=== PATIENT | male | born 1975 | race African-American/Black ===

== ENCOUNTER 2018-04-24 13:45 | Emergency (ER) | payer MEDICAID ==
[~2018-04-24] VITALS: Ht 188 cm; Wt 95.3 kg
--- NOTE | 2018-04-24 13:49 | NUR ---
patient ambulated to bed #1
--- NOTE | 2018-04-24 13:50 | NUR ---
42Y/F BIB C/O SORE THROAT AND FEVER WITH N/V X 1 DAY. NO OTHER COMPLAINTS AT THIS TIME. DENIES CP AND SOB. BED DOWN, BEDRAIL UP X 1; ER MD AWARE AND NOTIFIED OF PT STATUS; WILL CONT TO MONITOR PT. HX: HTN MEDS:METOPROLOL
[2018-04-24 13:53] VITALS: BP 115/78
--- NOTE | 2018-04-24 14:00 | NUR ---
Patient being evaluated by physician at bedside.
--- NOTE | 2018-04-24 15:23 | NUR ---
Patient discharged with v/s stable. Written and verbal after care instructions given and explained. Patient alert, oriented and verbalized understanding of instructions. Ambulatory with steady gait. All questions addressed prior to discharge. ID band removed. Patient advised to follow up with PMD. Rx of zithromax z-quinton given. Patient educated on indication of medication including possible reaction and side effects. Opportunity to ask questions provided and answered.
[2018-04-24 15:24] VITALS: BP 113/76
== END 2018-04-24 15:23 | disposition home or self-care (01) ==
LOC: MED 13:45
DX: J40 Bronchitis, not specified as acute or chronic (principal); J02.9 Acute pharyngitis, unspecified; I10 Essential (primary) hypertension
CPT/HCPCS: 99283

== ENCOUNTER 2018-08-06 14:29 | Emergency (ER) | payer MEDICAID ==
[~2018-08-06] VITALS: Ht 188 cm; Wt 96.2 kg
[2018-08-06 14:35] VITALS: BP 127/81
--- NOTE | 2018-08-06 14:40 | NUR ---
43 Y/O M BIB SELF W/ C/O ABSCESS TO RIGHT NIPPLE X WEEKS. +REDNESS, +SWELLING. PT DENIES FEVER/CHILLS. PT DENIES N/V/D; AAOX4, PERRL, WITH EVEN AND STEADY GAIT; PT DENIES ANY FEVER, CP, SOB, OR COUGH AT THIS TIME; PT STATES 8/10 PAIN AT THIS TIME; VSS; PATIENT POSITIONED FOR COMFORT; HOB ELEVATED; BEDRAILS UP X2; BED DOWN. hx--HTN, COPD, Asthma
--- NOTE | 2018-08-06 15:50 | NUR ---
PT. RESTING COMFORTABLY IN BED, RR EVEN AND UNLABORED. VSS. WILL CONTINUE TO MONITOR.
[2018-08-06] MEDS ORDERED: KETOROLAC 60 MG/2 ML VIAL IM ONE (16:45)
--- NOTE | 2018-08-06 16:50 | NUR ---
pt. resting comfortably in bed, rr even and unlabored. Will continue to monitor. vss
[2018-08-06 17:19] VITALS: BP 120/82
--- NOTE | 2018-08-06 17:19 | NUR ---
Patient discharged with v/s stable. Written and verbal after care instructions given and explained. Patient alert, oriented and verbalized understanding of instructions. Ambulatory with steady gait. All questions addressed prior to discharge. ID band removed. Patient advised to follow up with PMD. Rx of bactrim ds, keflex 500mg, motrin 800mg. given. Patient educated on indication of medication including possible reaction and side effects. Opportunity to ask questions provided and answered.
== END 2018-08-06 17:19 | disposition home or self-care (01) ==
LOC: MED 14:29
DX: L03.313 Cellulitis of chest wall (principal); J86.9 Pyothorax without fistula; J45.909 Unspecified asthma, uncomplicated; I10 Essential (primary) hypertension; F17.200 Nicotine dependence, unspecified, uncomplicated
CPT/HCPCS: 96372; 99283; J1885

== ENCOUNTER 2018-08-09 14:27 | Emergency (ER) | payer MEDICAID ==
[~2018-08-09] VITALS: Ht 185.4 cm; Wt 95.3 kg
[2018-08-09 14:36] VITALS: BP 131/78
--- NOTE | 2018-08-09 14:59 | NUR ---
PATIENT AMBULATED TO ER BED 8.
--- NOTE | 2018-08-09 15:05 | NUR ---
PT IS A 43 Y/O MALE WHO PRESENST TO THE ED C/O CELLULITIS. PT STATES THAT HE WAS PRESCRIBED ANTIBIOTICS WITH NO RELIEF, REPORTS WEAKNESS. PT DENIES PAIN AT THIS TIME, REPORTS TAKING MOTRIN. PT DENIES CP, SOB, N/V/D. NOTED REDNESS AROUND R NIPPLE. PT AWAKE AND ALERT, RR EVEN/UNLABORED. PT REPOSITIONED FOR COMFORT, BED IN LOWEST POSITION. ER PROVIDER NOTIFIED. WILL CONTINUE TO MONITOR. RX: DOES NOT REMEMBER HX: DENIES
[2018-08-09] MEDS ORDERED: KETOROLAC 30 MG/ML VIAL IVP ONE (15:50)
[2018-08-09] MEDS ORDERED: CLINDAMYCIN 600 MG in DEXTROSE 5% 50 ML IV ONE (15:50)
[2018-08-09 16:41] LABS: BASOPHILS # (AUTO) 0.1 K/uL (0.00-0.22); BASOPHILS % (AUTO) 1.3 % (0.0-2.0); EOSINOPHILS % (AUTO) 0.2 % (0.0-4.0); HEMATOCRIT 44.1 % (36-52); HEMOGLOBIN 14.8 g/dL (12.0-18.0); LYMPHOCYTES # (AUTO) 0.5 K/uL (2.0-11.5); LYMPHOCYTES % (AUTO) 7.5 % (20.5-51.1); MEAN CORPUSCULAR HEMOGLOBIN 30 pg (27-31); MEAN CORPUSCULAR HGB CONC 34 g/dL (33-37); MEAN CORPUSCULAR VOLUME 89.7 fL (80-94); MONOCYTES # (AUTO) 0.7 K/uL (0.8-1.0); MONOCYTES % (AUTO) 9.3 % (1.7-9.3); NEUTROPHILS # (AUTO) 5.7 K/uL (1.8-7.7); NEUTROPHILS % (AUTO) 81.7 % (42.2-75.2); PLATELET COUNT (AUTO) 217 K/uL (140-450); RED BLOOD CELL COUNT(AUTO) 4.92 MIL/uL (4.20-6.10); RED CELL DISTRIBUTION WIDTH 13.5 % (11.6-13.7)
[2018-08-09 16:51] LABS: ANION GAP 17.1 (8-16); CARBON DIOXIDE 25.2 mmol/L (21-32); CREATININE 1.4 mg/dL (0.7-1.3); POTASSIUM 4.3 mmol/L (3.5-5.1)
[2018-08-09] MEDS ORDERED: CLINDAMYCIN 600 MG/4 ML VIAL ONE (16:52)
--- NOTE | 2018-08-09 18:13 | NUR ---
Patient discharged with v/s stable. Written and verbal after care instructions given and explained. Patient alert, oriented and verbalized understanding of instructions. Ambulatory with steady gait. All questions addressed prior to discharge. ID band removed. Patient advised to follow up with PMD. Rx of Clindamycin and Motrin given. Patient educated on indication of medication including possible reaction and side effects. Opportunity to ask questions provided and answered.
[2018-08-09 18:14] VITALS: BP 115/67
--- NOTE | 2018-08-11 09:28 | NUR ---
Late Entry. Confirmed with RN that Clindamycin IVPB ran over 1 hour. Start time was 1656.
== END 2018-08-09 18:13 | disposition home or self-care (01) ==
LOC: MED 14:27
DX: N61.1 Abscess of the breast and nipple (principal)
CPT/HCPCS: 36415; 76641; 80048; 85025; 96365; 96375; 99284; J1885; J3490; Q0092; J7060

== ENCOUNTER 2023-05-18 11:13 | Emergency (ER) | payer MEDICAID, OTHER ==
[~2023-05-18] VITALS: Ht 188 cm; Wt 99.8 kg
[2023-05-18 11:30] VITALS: BP 155/97; PULSE 139; RESP 14; TEMP 97; O2SAT 97
== END 2023-05-18 12:51 | disposition home or self-care (01) ==
LOC: MED 11:13
DX: F10.10 Alcohol abuse, uncomplicated (principal); F19.10 Other psychoactive substance abuse, uncomplicated; J45.909 Unspecified asthma, uncomplicated; I10 Essential (primary) hypertension; F17.200 Nicotine dependence, unspecified, uncomplicated
CPT/HCPCS: 99283